=== PATIENT | male | born 1960 | race Asian ===

== ENCOUNTER 2018-03-28 13:35 | Emergency (ER) | payer BC ==
[~2018-03-28] VITALS: Ht 180.3 cm; Wt 81.6 kg
[2018-03-28 13:35] VITALS: Ht 180.3 cm; Wt 81.6 kg
[~2018-03-28 13:35] MED LIST: ATI1 PO; CRESTOR10 M1 PO; CRESTOR10 MG PO; FOL1 PO; GLU500 PO; HYD25 PO; LISINOPRIL20 MG PO; LOVAZA1 GM PO; NOR5 PO; OMEGA 31000 MG PO; PREVACID PO; THI100 PO; TRILIPIX135 MG PO; ZESTRIL20 PO
[2018-03-28 14:25] LABS: PLATELET COUNT 260 x10^3mcL (130-400); RED CELL DISTRIBUTION WIDTH 12.9 % (11.5-14.5)
[2018-03-28 14:27] LABS: BASOPHIL % 2.8 % (0-2)
[2018-03-28 14:37] LABS: UA SPECIFIC GRAVITY 1.015 (1.005-1.035); microscopic required? YES; urine erythrocyte NEGATIVE (NEGATIVE)
[2018-03-28 14:48] LABS: ALKALINE PHOSPHATASE 121 U/L (46-116); ALT/SGPT 100 U/L (16-63); AMYLASE 52 U/L (25-115); BILIRUBIN TOTAL 0.3 mg/dL (0.20-1.00); CARBON DIOXIDE 25.8 mmol/L (21-32); HDL CHOLESTEROL 45 mg/dL (40-60); LIPASE 147 IU/L (73-393); MAGNESIUM 2.3 mg/dL (1.8-2.4); POTASSIUM SERUM 4.5 mmol/L (3.5-5.1); T4(THYROXINE) 6.3 ug/dL (4.7-13.3)
[2018-03-28 14:50] LABS: CHOLESTEROL 205 mg/dL (<200)
[2018-03-28 15:04] LABS: ALBUMIN 3.9 g/dL (3.4-5.0); CHLORIDE SERUM 99 mmol/L (98-107); CREATININE SERUM 0.9 mg/dL (0.7-1.3); GFR1 > 60 mL/min; GLUCOSE SERUM 128 mg/dL (74-106); SODIUM SERUM 137 mmol/L (136-145)
[2018-03-28 15:04] LABS: AMPHETAMINE QUAL UR NONE DETECTED (See below)
[2018-03-28 15:20] LABS: AST/SGOT 86 U/L (15-37)
[2018-03-28 16:25] VITALS: BP 158/97
== END 2018-03-28 16:25 | disposition home or self-care (01) ==
LOC: ED 13:35
PROVIDERS: Emergency Medicine
DX: R10.13 Epigastric pain (principal); R11.10 Vomiting, unspecified; I10 Essential (primary) hypertension; E78.00 Pure hypercholesterolemia, unspecified; F32.9 Major depressive disorder, single episode, unspecified; I45.10 Unspecified right bundle-branch block; Z85.00 Personal history of malignant neoplasm of unspecified digestive organ; Z98.890 Other specified postprocedural states
CPT/HCPCS: G0480; J2405; J3010; J3411; J3475; J3490; J7030; Q0092